=== PATIENT | female | born 1985 | race Caucasian/White ===

== ENCOUNTER 2018-06-14 14:06 | Emergency (ER) | payer OTHER ==
[2018-06-14 14:18] VITALS: O2SAT 100
[2018-06-14] MEDS ORDERED: Sodium Chloride 0.9% 1,000 ML IV STA ×2 (14:44→18:09)
--- NOTE | 2018-06-14 14:46 | ED PDOC ---
HPI: Abdomen Time Seen by Provider: 06/14/18 14:23 Chief Complaint (Nursing): Abdominal Pain Chief Complaint (Provider): abdominal pain History Per: Patient History/Exam Limitations: no limitations Onset/Duration Of Symptoms: Days (1) Current Symptoms Are (Timing): Still Present Location Of Pain/Discomfort: Diffuse Associated Symptoms: Nausea, Vomiting Additional Complaint(s): 33 y/o female, approximately 16 weeks gestation, presents for evaluation of diffuse abdominal pain x 1 day. Associated vomiting. Denies fever, cough, congestion, chest pain, shortness of breath, palpitations, changes in bowel movements, urinary symptoms. Patient states she has not had ultrasound with this thus far. LMP: NA (irregular) Past Medical History Reviewed: Historical Data, Nursing Documentation, Vital Signs Vital Signs: Last Vital Signs Temp 97.7 F 06/14/18 14:15 Pulse 88 06/14/18 14:15 Resp 17 06/14/18 14:15 BP 121/59 L 06/14/18 14:15 Pulse Ox 100 06/14/18 14:15 - Medical History PMH: No Chronic Diseases - Surgical History Surgical History: No Surg Hx - Family History Family History: States: No Known Family Hx - Living Arrangements Living Arrangements: With Family - Immunization History Hx Tetanus Toxoid Vaccination: No Hx Influenza Vaccination: No Hx Pneumococcal Vaccination: No - Home Medications Home Medications: Ambulatory Orders Medication Instructions Recorded Famotidine [Pepcid] 20 mg PO DAILY #14 tab 10/25/15 Ondansetron ODT [Zofran ODT] 4 mg PO Q8 PRN #12 odt 10/25/15 Ondansetron ODT [Zofran ODT] 4 mg PO Q8 PRN #10 odt 06/14/18 - Allergies Allergies/Adverse Reactions: Allergies Allergy/AdvReac Type Severity Reaction Status Date / Time No Known Allergies Allergy Verified 10/25/15 12:04 Review of Systems ROS Statement: Except As Marked, All Systems Reviewed And Found Negative Gastrointestinal: Positive for: Nausea, Vomiting, Abdominal Pain Physical Exam - Reviewed Nursing Documentation Reviewed: Yes Vital Signs Reviewed: Yes - Physical Exam Appears: Positive for: Well, Non-toxic, No Acute Distress Head Exam: Positive for: ATRAUMATIC, NORMAL INSPECTION, NORMOCEPHALIC Skin: Positive for: Normal Color Eye Exam: Positive for: Normal appearance ENT: Positive for: Normal ENT Inspection Cardiovascular/Chest: Positive for: Regular Rate, Rhythm Respiratory: Positive for: Normal Breath Sounds Gastrointestinal/Abdominal: Positive for: Bowel Sounds, Soft. Negative for: Tenderness Back: Positive for: Normal Inspection Extremity: Positive for: Normal ROM Neurologic/Psych: Positive for: Alert, Oriented (x3) - Laboratory Results Result Diagrams: 06/14/18 14:50 06/14/18 14:50 - ECG O2 Sat by Pulse Oximetry: 100 - Progress ED Course And Treament: -upreg -udip -cbc -cmp -beta hcg -OB u/s Date of service: 06/14/2018 PROCEDURE: HISTORY: ; pain COMPARISON: TECHNIQUE: FINDINGS: Single live intrauterine gestation with a BPD of 3.5 cm corresponding to 16 weeks and 5 days gestational age. This concordant with the remaining biometric measurements. heart motion of 150 beats per minute is observed. The placenta is anterior. Recommend repeat examination in the 2nd trimester for full anatomic survey. Variable presentation IMPRESSION: As above. On re-eval, patient states she is feeling better; tolerating PO Patient educated on findings, discharged with rx Zofran Advised follow up tailor men's ready to wear within 2-3 days Return precautions given Disposition - Clinical Impression Clinical Impression: Vomiting during , Abdominal pain during - Patient ED Disposition Is Patient to be Admitted: No Counseled Patient/Family Regarding: Studies Performed, Diagnosis, Need For Followup, Rx Given - Disposition Disposition: Routine/Home Disposition Time: 17:48 Condition: IMPROVED Prescriptions: Ondansetron ODT [Zofran ODT] 4 mg PO Q8 PRN #10 odt PRN Reason: Nausea/Vomiting Instructions: Nausea and Vomiting of (DC), Round Ligament Pain Print Language: FRENCH
[2018-06-14 15:13] LABS: BASO % 0.4 % (0.0-2.0); EOS # 0.1 K/uL (0.0-0.7); EOS % 0.8 % (0.0-4.0); HEMOGLOBIN 12.1 g/dL (12.0-16.0); LYMPH # 0.8 K/uL (1.0-4.3); LYMPH % 8.9 % (20.0-40.0); MEAN CELL VOLUME 81.3 fl (81.0-99.0); MEAN CORPUSCULAR HEMOGLOBIN 26.7 pg (27.0-31.0); MEAN CORPUSCULAR HGB CONC 32.9 g/dL (33.0-37.0); MEAN PLATELET VOLUME 9.9 fl (7.2-11.7); MONO # 0.3 K/uL (0.0-0.8); MONO % 3.8 % (0.0-10.0); NEUT # 7.9 K/uL (1.8-7.0); NEUT % 86.1 % (50.0-75.0); PLATELET COUNT 168 K/uL (130-400); RBC 4.52 Mil/uL (3.80-5.20); RED CELL DISTRIBUTION WIDTH 14.3 % (11.5-14.5); WHITE BLOOD COUNT 9.2 K/uL (4.8-10.8)
[2018-06-14 15:22] LABS: ALBUMIN 3.8 g/dL (3.5-5.0); ALT/SGPT 32 U/L (9-52); AST/SGOT 28 U/L (14-36); BLOOD UREA NITROGEN 7 mg/dl (7-17); GFR NON-AFRICAN AMERICAN > 60; LIPASE 59 U/L (23-300)
[2018-06-14 15:35] LABS: LYMPHOCYTE 9 % (20-50); METAMYELOCYTE 1 % (0-0); MONOCYTE 3 % (0-10); MYELOCYTE 1 % (0-0); NEUTROPHIL 86 % (42-75); PLATELET ESTIMATE NORMAL (NORMAL); TOTAL CELLS COUNTED 100
--- NOTE | 2018-06-14 16:32 | US ---
Date of service: 06/14/2018 PROCEDURE: HISTORY: ; pain COMPARISON: TECHNIQUE: FINDINGS: Single live intrauterine gestation with a BPD of 3.5 cm corresponding to 16 weeks and 5 days gestational age. This concordant with the remaining biometric measurements. heart motion of 150 beats per minute is observed. The placenta is anterior. Recommend repeat examination in the 2nd trimester for full anatomic survey. Variable presentation IMPRESSION: As above.
[2018-06-14 17:27] LABS: SQUAMOUS EPITHIAL 9 /hpf (0-5); URINE BACTERIA RARE (<OCC); URINE BILIRUBIN NEGATIVE (NEGATIVE); URINE BLOOD NEGATIVE (NEGATIVE); URINE CLARITY CLOUDY (Clear); URINE COLOR YELLOW (YELLOW); URINE GLUCOSE (UA) NEG (NEGATIVE); URINE LEUKOCYTE ESTERASE NEG Leu/uL (Negative); URINE PROTEIN NEGATIVE (NEGATIVE); URINE UROBILINOGEN 0.2-1.0 mg/dL (0.2-1.0)
[2018-06-14 17:42] VITALS: RESP 18
[2018-06-14 20:20] VITALS: BP 128/60; PULSE 98; TEMP 98.4
== END 2018-06-14 20:31 | disposition home or self-care (01) ==
LOC: H.ER 14:06
DX: O21.9 Vomiting of pregnancy, unspecified (principal); O26.899 Other specified pregnancy related conditions, unspecified trimester
CPT/HCPCS: 76815; 80053; 81003; 83690; 84702; 85025; 87086; 96360; 99283; J2405; J2765; J7030